=== PATIENT | female | born 1940 | race Two or more races ===

== ENCOUNTER 2025-03-27 09:45 | Emergency (ER) | payer MEDICAID, SELFPAY ==
[2025-03-27 09:46] VITALS: BP 135/69; PULSE 74; RESP 17; TEMP 36.8; O2SAT 95
[2025-03-27 09:55] VITALS: PULSE 90; RESP 16; O2SAT 98
--- NOTE | 2025-03-27 09:55 | EKG_ITS ---
[facility] (Formerly [facility])[3] Test Date: 2025-03-27 Pat Name: FERNANDA ROSENBERG Department: Room: - Gender: Female Order Tracer: : [id number] Requested By: Jean Marie Soto Order Number: [id number] Reading MD: Jean Marie Soto Measurements Intervals [place] Rate: 65 P: 64 MT: 165 QRS: -38 QRSD: 77 T: 38 QT: 397 QTc: 413 Interpretive Statements SINUS RHYTHM LEFT AXIS DEVIATION [QRS AXIS < -30] No previous ECG available for comparison /[id number].pdf
--- NOTE | 2025-03-27 09:55 | XR_ITS ---
Examination: AP chest single view Technique one AP portable supine chest single view Date and time: March 27, 2025 1045 hours INDICATIONS: Ground-level fall today with chest pain FINDINGS: Normal heart size No pneumothorax Prominent osteopenia Ribs appear intact IMPRESSION: No pneumothorax pulmonary contusion or hemothorax
--- NOTE | 2025-03-27 09:55 | XR_ITS ---
Examination:Left hip AP, lateral, AP pelvis 3 views Technique: Hip AP lateral, AP pelvis, 3 views Exam date and time:March 27, 2025 1108 hours INDICATIONS: Patient fell this morning with injury to the left hip, left hip pain FINDINGS: Acute intertrochanteric/subtrochanteric fracture left hip, 18 mm offset at the main fracture site No hip dislocation Right hip bones of the pelvis intact IMPRESSION: Acute displaced intertrochanteric/subtrochanteric fracture left hip.
--- NOTE | 2025-03-27 09:55 | XR_ITS ---
Examination: CT brain head without contrast. 2-D sagittal coronal reconstructions Date and time of exam:March 27, 2025 1024 hours INDICATIONS: Ground-level fall today with into the head, head pain CTDI: vol (mGy):42.8 DLP: (mGycm):840 Technique: Multiple CT axial sections of the brain have been obtained, 5 mm slice thickness. Contrast has not been administered. 2-D sagittal, coronal reconstructions have been obtained Low dose protocols were performed. One or more of the following dose reduction techniques were used; automated exposure control, adjustment of the mA and/or KV according to patient size, use of iterative reconstruction technique. Findings: No significant ventricular enlargement. Intra-axial or extra-axial hemorrhage density is not seen. No mass effect or midline shift Basal cisterns are not remarkable. Fourth ventricle is midline. Cranial vault intact. Acute right mastoiditis Impression: Negative for acute hemorrhage, mass effect or midline shift
--- NOTE | 2025-03-27 10:06 | PD.EDADULT ---
ED General RME/HPI General Chief complaint: Fall Stated complaint: HIP PAIN Time Seen by Provider: 03/27/25 09:49 Arrival date/time: 03/27/25 09:45 Limitations: no limitations RME / HPI RME / HPI narrative: DR. SOTO MAIN ED EVALUATION: 79 year old female with past medical history significant for hypertension presents to the Emergency Department with complaint of dizziness when she was getting into a car and fell on her left hip and also hit her head. No loss of consciousness. No blood thinners. Related Data Allergies Allergy/AdvReac Type Severity Reaction Status Date / Time tramadol Allergy Verified 03/27/25 10:55 Review of Systems Review of Systems Systems Reviewed: All systems reviewed, normal except as documented Past Medical History Past Medical History CARDIAC: Positive Hypertension Social History SMOKING STATUS: Never smoker SUBSTANCE USE: does not use ALCOHOL: Never ED Exam General Limitations: Present no limitations General appearance: Present alert and in no apparent distress Head Head exam: Present normal inspection Eye Eye exam: Present normal appearance, PERRL and EOMI ENT ENT exam: Present normal exam, normal oropharynx and mucous membranes moist Neck Neck exam: Present normal inspection, full ROM and trachea midline Chest Chest inspection: Present normal inspection and symmetric chest wall rise Respiratory Respiratory exam: Present normal lung sounds bilaterally Cardiovascular Cardiovascular exam: Present regular rate, normal rhythm and normal heart sounds Abdominal Exam Abdominal exam: Present soft and normal bowel sounds Extremities Exam Extremities exam: Present normal inspection Expanded Lower Extremity Exam Hip/Pelvis exam: Present crepitus (left hip), shortening (left hip) and other (left hip bony deformity) Back Exam Back exam: Present normal inspection Neurological Exam Neurological exam: Present alert, oriented X3 and CN II-XII intact Psychiatric Psychiatric exam: Present normal affect and normal mood Skin Skin exam: Present warm, dry, intact and normal color Course Quality Measures none Orders Category Date Time Status Urban Designer STAT Care 03/27/25 09:55 Active Continuous Pulse Oximetry ONCE Care 03/27/25 09:55 Completed EKG (ED ONLY) *Do not use* NOW Care 03/27/25 09:55 Completed Insert IV STAT Care 03/27/25 09:55 Active Urinary Catheter STAT Care 03/27/25 09:[address] head/brain wo con Stat Exams 03/27/25 09:55 Completed EKG (ED Only) Stat Exams 03/27/25 09:55 Draft XR chest 1V portable Stat Exams 03/27/25 09:55 Completed XR hip LT w pelvis 2-3V Stat Exams 03/27/25 09:55 Completed B-Type Natriuretic Peptide Stat Lab 03/27/25 10:30 Completed CBC Stat Lab 03/27/25 10:30 Completed Comprehensive Metabolic Panel Stat Lab 03/27/25 10:30 Completed Drug Screen,Urine Stat Lab 03/27/25 12:14 Completed Lipase Stat Lab 03/27/25 10:30 Completed Magnesium Stat Lab 03/27/25 10:30 Completed Prothrombin Time with INR Stat Lab 03/27/25 10:30 Completed Troponin I Stat Lab 03/27/25 10:30 Completed Morphine Inj Med 03/27/25 10:42 Discontinued 4 mg IVP X1 ONE Sodium Chloride 0.9% 1000 ml [Ns] 1,000 ml Med 03/27/25 12:37 Active IV 125 mls/hr Sodium Chloride 0.9% 1000 ml [Ns] 1,000 ml Med 03/27/25 09:55 Discontinued IV 999 mls/hr Vital Signs Vital signs: Vital Signs Temperature 98.3 F 03/27/25 09:46 Pulse Rate 74 03/27/25 09:46 Respiratory Rate 17 03/27/25 09:46 Blood Pressure 135/69 H 03/27/25 09:46 Pulse Oximetry (%) 95 03/27/25 09:46 Oxygen Delivery Method Room Air 03/27/25 09:46 Discharge Plan Plan Patient Disposition: [facility] Pt Being Transferred to: [facility] Service Needed for Transfer: Orthopedics Discharge Disposition comment: Accepted by Dr. Heller, orthopedist at [facility] Patient condition on transfer: Stable Prescriptions/Referrals Referrals: No Primary/Family,Physician [Primary Care Provider] - In 1 week Problem List Clinical Impression: Closed fracture of left hip, Benign essential HTN Patient/Caregiver Discharge Instructions Print Language: Lithuanian Stand Alone Forms: Cathleen Award Info., Patient Portal Info Letter MDM Narrative MDM hospital course: Patient did not sustain any other injuries, however due to her pains and history of hypertension, cardiac workup was done to facilitate her disposition. Essentially, all were negative. Patient is in agreement with transfer, as this facility does not have orthopedics coverage today. Clinical Information Provided by patient and EMS Medical Records Reviewed [facility] and EMS Meds/Rx Considered, not Ordered None Labs/Rad/Tests considered, not Ordered None Chronic Illness/Social Conditions Add or document further as needed: hypertension EKG EKG Interpretation narrative: My interpretation: EKG performed at 1032 hours, sinus rhythm, rate 65, left axis deviation Lab Interpretation Labs: none and interpreted by me Imaging Imaging interpretation: interpreted by nd Radiology reports / interpretation(s): Procedure(s): CT head/brain wo con Accession Number(s): [id number] cc: Jean Marie Soto MD; Jasper Deal MD~ Examination: CT brain head without contrast. 2-D sagittal coronal reconstructions Date and time of exam:March 27, 2025 1024 hours INDICATIONS: Ground-level fall today with into the head, head pain CTDI: vol (mGy):42.8 DLP: (mGycm):840 Technique: Multiple CT axial sections of the brain have been obtained, 5 mm slice thickness. Contrast has not been administered. 2-D sagittal, coronal reconstructions have been obtained Low dose protocols were performed. One or more of the following dose reduction techniques were used; automated exposure control, adjustment of the mA and/or KV according to patient size, use of iterative reconstruction technique. Findings: No significant ventricular enlargement. Intra-axial or extra-axial hemorrhage density is not seen. No mass effect or midline shift Basal cisterns are not remarkable. Fourth ventricle is midline. Cranial vault intact. Acute right mastoiditis Impression: Negative for acute hemorrhage, mass effect or midline shift Dictated By: Jasper Deal MD Procedure(s): XR chest 1V portable Accession Number(s): [id number] cc: Jean Marie Soto MD; Jasper Deal MD; NO PRIMARY/FAMILY,PHYSICIAN~ Examination: AP chest single view Technique one AP portable supine chest single view Date and time: March 27, 2025 1045 hours INDICATIONS: Ground-level fall today with chest pain FINDINGS: Normal heart size No pneumothorax Prominent osteopenia Ribs appear intact IMPRESSION: No pneumothorax pulmonary contusion or hemothorax Dictated By: Jasper Deal MD Procedure(s): XR hip LT w pelvis 2-3V Accession Number(s): [id number] cc: Jean Marie Soto MD; Jasper Deal MD; NO PRIMARY/FAMILY,PHYSICIAN~ Examination:Left hip AP, lateral, AP pelvis 3 views Technique: Hip AP lateral, AP pelvis, 3 views Exam date and time:March 27, 2025 1108 hours INDICATIONS: Patient fell this morning with injury to the left hip, left hip pain FINDINGS: Acute intertrochanteric/subtrochanteric fracture left hip, 18 mm offset at the main fracture site No hip dislocation Right hip bones of the pelvis intact IMPRESSION: Acute displaced intertrochanteric/subtrochanteric fracture left hip. Dictated By: Jasper Deal MD Medication Administration(s) Medication Administration History Sodium Chloride (Ns) 1,000 mls @ 125 mls/hr IV .Q8H KARTHIK Stop: 03/27/25 20:36 Discontinued Medications Sodium Chloride (Ns) 1,000 mls @ 999 mls/hr IV .Q1H1M ONE Stop: 03/27/25 10:55 Last Infusion: 03/27/25 12:31 Dose: Infused Documented By: Admin: 03/27/25 11:06 Dose: 999 mls/hr Documented By: VG Morphine Sulfate (Morphine Sulf Inj 10 Mg/Ml Vial) 4 mg IVP X1 ONE Stop: 03/27/25 10:43 Last Admin: 03/27/25 11:07 Dose: 4 mg Documented By: SELENE Consultations/Discussions re: Management Consult #1: Date/time: 03/27/25 12:26 pm Physician, specialty, service, details: Discussed test HPI, PMHx, lab, radiology results and/or management with Dr. Heller, ortho from [facility]. Will accept the patient for transfer. Diagnosis Differential diagnosis: fall, hip dislocation, hip fracture Most likely dx, and/or detailed dx discussion: Closed fracture of left hip Benign essential HTN Dispositon Disposition: Transfer
[2025-03-27 10:50] VITALS: BMI 25.4
[2025-03-27 10:50] LABS: Basophils % (Auto) 0 % (0-2.5); Eosinophils # (Auto) 0.1 Thou/mm3 (0.0-0.5); Eosinophils % (Auto) 1 % (0-10); Hematocrit 39.6 % (36.0-46.0); Hemoglobin 13.1 g/dL (12.0-16.0); Immature Granulocytes % (Auto) 1 % (0-0); Immature Granulocytes Auto 0.04 Thou/mm3 (0.00-0.00); Lymphocytes # (Auto) 1.1 Thou/mm3 (1.0-4.8); Lymphocytes % (Auto) 15 % (10-50); Mean Corpuscular HGB Conc 33.1 g/dl (31.0-37.0); Mean Corpuscular Hemoglobin 30.6 pg (25.0-35.0); Mean Corpuscular Volume 93 fL (80-100); Monocytes # (Auto) 0.5 Thou/mm3 (0.0-0.8); Monocytes % (Auto) 7 % (0-12); Neutrophils # (Auto) 5.7 Thou/mm3 (1.8-7.7); Neutrophils % (Auto) 77 % (37-80); Nucleated Red Blood Cell % 0 /100 WBC (0); Platelet Count 178 Thou/mm3 (140-440); RDW Standard Deviation 47.6 fL (36.4-46.3); Red Blood Count 4.28 Miln/mm3 (4.00-5.20); White Blood Count 7.4 Thou/mm3 (3.6-11.0)
[2025-03-27 10:56] VITALS: PULSE 65
[2025-03-27 10:59] LABS: INR 1.1 (0.9-1.3); Prothrombin Time 11.9 Seconds (9.0-12.2)
--- NOTE | 2025-03-27 11:00 | PC.NURSE ---
CALLED PHARMACY IN REGARDS TO ORDER FOR MORPHINE AND ALLERGY TO TRAMADOL. PER PHARMACY OKAY TO GIVE, MONITOR PT FOR REACTION.
[2025-03-27] MEDS: SODIUM CHLORIDE 0.9% 1000 ML 1,000 ML 999 ML IV (11:06)
[2025-03-27] MEDS: MORPHINE SULF INJ 10 MG/ML VIAL 4 MG IVP (11:07)
[2025-03-27 11:08] LABS: B-Type Natriuretic Peptide 114 pg/mL (0-100)
[2025-03-27 11:12] LABS: Anion Gap 9 (7-16); BUN/Creatinine Ratio 16 Ratio (12-20); Blood Urea Nitrogen 11 mg/dL (9-23); Chloride 102 mMol/L (98-107); Creatinine (Component) 0.7 mg/dL (0.6-1.3); Potassium 3.8 mMol/L (3.4-5.1); Sodium 140 mMol/L (136-145)
[2025-03-27 11:13] LABS: Alanine Aminotransferase 16 U/L (10-49); Albumin, Serum 3.6 gm/dL (3.4-4.8); Albumin/Globulin Ratio 1.2 (1.2-2.2); Alkaline Phosphatase 223 U/L (46-116); Aspartate Amino Transferase 28 U/L (0-34); Bilirubin,Total 0.5 mg/dL (0.3-1.2); Calcium 9.4 mg/dL (8.3-10.6); Calcium (Corrected) 9.7 mg/dL (8.5-10.1); Estimated Creatinine Clearance 54.1 mL/min (>60); Glucose 101 mg/dL (74-106); Lipase 41 U/L (12-53); Magnesium 1.9 mg/dL (1.6-2.6); Osmolality,Calculated 278 (275-295); Total Protein 6.6 gm/dL (5.7-8.2); Troponin I < 0.020 ng/mL (0.0-0.045); eGFR > 60 See Note
[2025-03-27 11:34] VITALS: BP 140/75; PULSE 61; RESP 16; TEMP 36.6; O2SAT 95
[2025-03-27 12:37] LABS: Amphetamine/Methamp Scrn,U Negative (Negative); Barbiturate Screen,Urine Negative (Negative); Benzodiazepines Screen,Urine Positive (Negative); Benzoylecgonine Screen, Ur Negative (Negative); Fentanyl Screen,Urine Positive (Negative); Opiate Screen,Urine Positive (Negative); THC Screen,Urine Negative (Negative)
[2025-03-27] MEDS: SODIUM CHLORIDE 0.9% 1000 ML 1,000 ML 125 ML IV (12:42)
--- NOTE | 2025-03-27 13:12 | PC.CC ---
Yojana DING was consulted by tie man Enma for arrangement of transportation for transfer to [facility] ER to ER. ASW arranged transportation with [facility] for eta p/u 1530.
[2025-03-27 14:52] VITALS: BP 133/64; PULSE 62; RESP 15; TEMP 36.7; O2SAT 95
--- NOTE | 2025-03-27 15:25 | PC.NURSE ---
CALLED [facility] AND SPOKE TO JACEK ARCHIBALD TO WHOM I GAVE REPORT TOO
[2025-03-27 15:50] VITALS: BP 145/85; PULSE 81; RESP 16; TEMP 36.7; O2SAT 99
== END 2025-03-27 15:50 | disposition short-term general hospital (02) ==
PROVIDERS: Emergency Provider Emergency Medicine
DX: S72.002A Fracture of unspecified part of neck of left femur, initial encounter for closed fracture (principal); R07.9 Chest pain, unspecified; R51.9 Headache, unspecified; I10 Essential (primary) hypertension; R94.31 Abnormal electrocardiogram [ECG] [EKG]; W18.30XA Fall on same level, unspecified, initial encounter; Z75.1 Person awaiting admission to adequate facility elsewhere
CPT/HCPCS: 51702; 36415; 70450; 71045; 73502; 80053; 80307; 83690; 83735; 83880; 84484; 85025; 85610; 93005; 96361; 96374; 99285; A4314; J2270; J7030